=== PATIENT | female | born 1960 | race Caucasian/White ===

== ENCOUNTER 2022-05-11 13:15 | Inpatient (IN) | payer BC ==
[2022-05-11] VITALS (8 sets, daily range): BP systolic 100–121; BP diastolic 65–79
[~2022-05-11] VITALS: Ht 165.1 cm; Wt 61.4 kg
--- NOTE | 2022-05-11 13:15 | NUR ---
1310 BIBA ALS TO ER BED 10
--- NOTE | 2022-05-11 13:15 | NUR ---
RECEIVED FROM AMT; PLACED ON A Definition 6APE R860 VENTILATOR PLUGGED INTO RED OUTLET TOLERATING WELL WITHOUT ADVERSE REACTIONS NOTED TO A IRENE DCT #8 AIRWAY SECURED WITH A FELIPE TRACH TIE CUFF PRESSURE CHECKED NOTED AMBU BAG AT BEDSIDE; CHANGED Vt TO 400ml (7ml/kg PER ARDS PROTOCOL) INCREASD FIO2 TO 70% TO KEEP SATURATION GREATER THAN 92% DEEP TRACHEAL SUCTION FOR COPIOUS THIN YELLOW/GOLD SECRETIONS AIRWAY PATENT SPUTUM SAMPLE FORWARDED TO LAB
[2022-05-11 13:31] LABS: PROTHROMBIN TIME 10.9 secs (10.8-13.4)
[2022-05-11] MEDS ORDERED: cefTRIAXone 2,000 MG in DEXTROSE 5% 100 ML IV ONE (13:45)
[2022-05-11 13:56] LABS: BASOPHILS # (AUTO) 0.1 K/uL (0.00-0.22); BASOPHILS % (AUTO) 0.3 % (0.0-2.0); EOSINOPHILS # (AUTO) 0.1 K/uL (0-0.4); EOSINOPHILS % (AUTO) 0.4 % (0.0-4.0); HEMOGLOBIN 10.8 g/dL (12.0-16.0); LYMPHOCYTES # (AUTO) 0.8 K/uL (2.5-16.5); LYMPHOCYTES % (AUTO) 3.7 % (20.5-51.1); MEAN CORPUSCULAR HEMOGLOBIN 26 pg (27-31); MEAN CORPUSCULAR HGB CONC 33 g/dL (33-37); MEAN CORPUSCULAR VOLUME 79.9 fL (80-94); MONOCYTES # (AUTO) 1.6 K/uL (0.8-1.0); NEUTROPHILS # (AUTO) 19.8 K/uL (1.8-7.7); NEUTROPHILS % (AUTO) 88.6 % (42.2-75.2); PLATELET COUNT (AUTO) 287 K/uL (140-450); RED BLOOD CELL COUNT(AUTO) 4.13 MIL/uL (4.20-5.40); RED CELL DISTRIBUTION WIDTH 19.8 % (11.6-13.7)
[2022-05-11] MEDS ORDERED: cefTRIAXone 2,000 MG VIAL ONE (14:01)
[2022-05-11 14:10] LABS: WHITE BLOOD COUNT (AUTO) 22.3 K/uL (4.8-10.8)
--- NOTE | 2022-05-11 14:15 | NUR ---
RESTING WELL EQUAL CHEST RISE; SATURATION 100% ON FIO2 OF 70% PEEP 5cmH2O TITRATED FIO2 TO 35% CRUDE UNIT OPERATOR TO MONITOR
[2022-05-11 14:28] LABS: ALBUMIN 2.8 g/dL (3.4-5.0); ANION GAP 14.1 (8-16); CARBON DIOXIDE 31.2 mmol/L (21-32); CREATININE 0.5 mg/dL (0.6-1.3); POTASSIUM 3.3 mmol/L (3.5-5.1); TOTAL BILIRUBIN 0.2 mg/dL (0.0-1.0)
[2022-05-11] MEDS ORDERED: VANCOMYCIN PER PHARMACY MC PRN (15:00)
[2022-05-11] MEDS ORDERED: LORazepam 2 MG/ML VIAL IVP PRN (15:05)
[2022-05-11] MEDS ORDERED: MAG SULF 2000 MG/WATER PREMIX 50 ML IV PRN (15:05)
[2022-05-11] MEDS ORDERED: ZOLPIDEM 10 MG TAB PO PRN (15:05)
[2022-05-11] MEDS ORDERED: ONDANSETRON 4 MG/2 ML VIAL IVP PRN (15:05)
[2022-05-11] MEDS ORDERED: ACETAMINOPHEN 650 MG/20.3 ML UDC GT PRN (15:10)
[2022-05-11] MEDS ORDERED: DEXTROSE 50% 50 ML SYR IVP PRN (15:10)
[2022-05-11] MEDS ORDERED: DOCUSATE 100 MG/10 ML UDC PO PRN (15:10)
[2022-05-11] MEDS ORDERED: POTASSIUM CHLORIDE 20% 40 MEQ/15 ML UDC PO PRN (15:15)
--- NOTE | 2022-05-11 15:38 | NUR ---
ON OR ABOUT THIS TIME TRANSFERRED PATIENT ON VENTILATOR TO ICU-7; TOLERATED WELL WITHOUT COMPLICATIONS NOTED SATURATION 98% HR 96
--- NOTE | 2022-05-11 15:51 | NUR ---
RESTING COMFORTABLY EQUAL CHEST RISE AIRWAY PATENT NO SUCTIONING REQUIRED AT THIS TIME
--- NOTE | 2022-05-11 15:51 | NUR ---
STABLE GOOD CHEST RISE NO SUCTIONING REQUIRED AT THIS TIME SATURATION 97% ON FIO2 OF 50 % PEEP 5cmH2O TITRATED FIO2 TO 45% [place]TON/INJECTION MOLDING ENGINEER NOTIFIED
--- NOTE | 2022-05-11 16:00 | NUR ---
RECEIVED REPORT FROM ER NURSE. ADMITTED 62 Y/O FEMALE WITH ADMITTING DX OF SEPSIS. OPENS EYES TO NAME, TRACKS, MOUTHS WORDS. TRACH TO VENT ACPRVC FIO2 45 TV 400 RATE 12 PEEP 5. GT INTACT AND PATENT. SANDRA MIDLINE INTACT AND PATENT. PT HAS A SLING ON HER LEFT ARM D/T LEFT ELBOW FRACTURE PRIOR TO ADMISSION. SKIN INTACT, LOW LOUANN.
[2022-05-11] MEDS: VANCOMYCIN 1,000 MG in NACL 0.9% 250 ML IV SCH (16:54)
[2022-05-11] MEDS: BLOOD GLUCOSE MONITORING 1 DEV DEV FS SCH (17:24)
--- NOTE | 2022-05-11 20:00 | NUR ---
RECEIVED IN BED WITH EYES CLOSED , EASILY AROUSABLE . IN REPORT OUT GOING RN STATED THAT SERUM POTASSIUM WAS 3.3 AND REPLACED WITH 40MEQ OF POATASSIUM. WILL AWAIT RESULT OF POTASSIUM LEVELS IN AM LAB DRAWSI PATIENT STABLE AND WILL CONTINUE TO MONITOR .
[2022-05-11] MEDS: PIPERACILLIN/TAZOBACTAM 3.375 GM in DEXTROSE 5% 50 ML IV SCH (21:18)
[2022-05-11 22:28] LABS: APPEARANCE,URINE CLOUDY (CLEAR); BILIRUBIN,URINE NEGATIVE (NEGATIVE); BLOOD, URINE 1+ (NEGATIVE); COLOR,URINE YELLOW (YELLOW); LEUKOCYTE ESTERASE ,URINE 3+ (NEGATIVE); NITRITE, URINE NEGATIVE (NEGATIVE); UGLUCOSE NEGATIVE (NEGATIVE)
[2022-05-11 22:43] LABS: RBC,URINE 0-5 /HPF (0-5); WBC,URINE TOO MANY TO COUNT /HPF (0-5)
[2022-05-12] VITALS (20 sets, daily range): BP systolic 102–141; BP diastolic 61–89
[2022-05-12] MEDS: BLOOD GLUCOSE MONITORING 1 DEV DEV FS SCH ×5 (00:55→23:09)
[2022-05-12] MEDS: VANCOMYCIN 1,000 MG in NACL 0.9% 250 ML IV SCH ×2 (03:44→15:06)
[2022-05-12] MEDS: PIPERACILLIN/TAZOBACTAM 3.375 GM in DEXTROSE 5% 50 ML IV SCH ×3 (05:33→20:03)
[2022-05-12 05:50] LABS: BASOPHILS # (AUTO) 0.1 K/uL (0.00-0.22); BASOPHILS % (AUTO) 0.5 % (0.0-2.0); EOSINOPHILS # (AUTO) 0.1 K/uL (0-0.4); EOSINOPHILS % (AUTO) 0.3 % (0.0-4.0); HEMATOCRIT 30.8 % (36-48); HEMOGLOBIN 9.9 g/dL (12.0-16.0); LYMPHOCYTES % (AUTO) 5.5 % (20.5-51.1); MEAN CORPUSCULAR HEMOGLOBIN 26 pg (27-31); MEAN CORPUSCULAR HGB CONC 32 g/dL (33-37); MONOCYTES # (AUTO) 1.5 K/uL (0.8-1.0); MONOCYTES % (AUTO) 8.7 % (1.7-9.3); NEUTROPHILS # (AUTO) 14.8 K/uL (1.8-7.7); PLATELET COUNT (AUTO) 304 K/uL (140-450); RED BLOOD CELL COUNT(AUTO) 3.85 MIL/uL (4.20-5.40); RED CELL DISTRIBUTION WIDTH 19.9 % (11.6-13.7); WHITE BLOOD COUNT (AUTO) 17.4 K/uL (4.8-10.8)
[2022-05-12 06:46] LABS: ANION GAP 14.3 (8-16); CARBON DIOXIDE 29.8 mmol/L (21-32); CREATININE 0.4 mg/dL (0.6-1.3); POTASSIUM 4.1 mmol/L (3.5-5.1)
--- NOTE | 2022-05-12 07:15 | NUR ---
RECEIVED BEDSIDE REPORT FROM SHORT PIECE HANDLER MALAIKA REYES FOR CONTINUITY OF CARE. SLEEPING, NOT RESPOND TO NAME AND SHAKING. TRACH TO VENT, A/C PRVC FIO2 40%, VT 400, RATE 12, PEEP 5. SR ON MONITOR. MIDLINE TO SANDRA, INFUSING TKO NS @5 ML/HR. NPO. G TUBE CLAMPED.ESTRADA IN PLACE TO GRAVITY, URINE CLEAR AND YELLOW. LT ARM WITH SPLINT IN PLACE. SAFETY PRECAUTION IN PLACE, WILL CONTINUE TO MONITOR.
--- NOTE | 2022-05-12 07:55 | NUR ---
RECEIVED ON A [employer] Medical[employer]APE R860 VENTILATOR PLUGGED INTO RED OUTLET TOLERATING WELL WITHOUT ADVERSE REACTIONS NOTED TO A IRENE DCT #8 AIRWAY SECURED WITH A FELIPE TRACH TIE CUFF PRESSURE CHECKED NOTED AMBU BAG AT BEDSIDE RESTING COMFORTABLY EQUAL CHEST RISE DEEP TRACHEAL SUCTION FOR MODERATE SEMI THICK YELLOW SECRETIONS AIRWAY PATENT
[2022-05-12] MEDS: PANTOPRAZOLE 40 MG INJ VIAL IVP SCH (08:32)
--- NOTE | 2022-05-12 08:39 | NUR ---
SEEN AND EXAMINED BY DR MATHUR. ORDER RECEIVED. START TUBE FEEDING PER DIETITIAN RECOMMENDATION.
--- NOTE | 2022-05-12 08:51 | NUR ---
PATIENT HAS BEEN SCREENED AND CATEGORIZED HIGH NUTRITION RISK. PATIENT WILL BE SEEN WITHIN 1-2 DAYS OF ADMISSION. REVIEWED BY LINDA HOWARD RD
--- NOTE | 2022-05-12 09:59 | NUR ---
WOUND CARE NOTE: SKIN ASSESSMENT DONE WITH PRIMARY RN BRENTON. PT. SKIN INTACT. PT. ADMITTED WITH LEFT ELBOW FX SOFT CAST AND SLING IN PLACE, SKIN CHECKED UNDER DEVICES. PT. WITH LOW LOUANN SCALE AT HIGH RISK, CONTINUE TO FOLLOW PRESSURE INJURY PREVENTION INTERVENTIONS. -APPLY HYDRAGUARD TO PERINEUM BID AND SCALLOP BINDER -APPLY FOAM DRESSING TO SACROCOCCYX AND BUTTOCKS Q3 DAYS AND PRN IF SOILING -POSITIONING: TURN AND REPOSITION PATIENT Q 2H OR SOONER USE PILLOWS TO KEEP BONY PROMINENCES FROM DIRECT CONTACT WITH SURFACES USE REPOSITIONING WEDGES TO PROVIDE 30-DEGREE ANGLE FOR SIDE LYING POSITIONS OFFLOADING OR FOAM DRESSING TO ALL TUBING TO PREVENT MEDICAL DEVICES RELATED PRESSURE INJURY -RE-EVALUATING AND MANAGING INCONTINENCE MONITOR SKIN CONDITION DURING POSITION CHANGE DO NOT MASSAGE REDNESS, BONY PROMINENCES FREQUENT MARCE-CARE AND PROVIDE BARRIER CREAMS PRN IF SOILING MOISTURE CONTROL BY OFFER BED ALVARADO/URINAL /ABSORBENT PAD TO WICK AND HOLD MOISTURE KEEP SKIN DRY AND PROTECT FROM FRICTION -MANAGE FRICTION/SHEAR/MOBILITY KEEP HOB AT THE LOWEST LEVEL OF ELEVATION NO MORE THAN 30 DEGREE UNLESS OTHERWISE CONTRAINDICATED USE LIFT SHEET OR TRANSFER DEVICE TO MOVE PATIENT AND PREVENT LATERAL SHEER. PROTECT HEELS, ELBOWS BONY PROMINENCES WITH SKIN BERRIES OR FOAM DRESSING IF EXPOSED TO FRICTION OFFLOAD BILATERAL HEELS BY PLACING PILLOWS UNDER CALVES AT ALL TIMES, UNLESS OTHERWISE CONTRAINDICATED -PRESSURE REDISTRIBUTION SURFACE THERAPY JAY ISOFLEX MATTRESS -NUTRITION: PLEASE FOLLOW RD RECOMMENDATIONS AND OFFER NUTRITION SUPPLEMENTS IF ORDERED. PLEASE CONTACT WOUND CARE NURSE FOR ANY QUESTION AND CHANGE OF WOUND CONDITION.
--- NOTE | 2022-05-12 10:35 | NUR ---
SEEN AND EXAMINED BY DR RIOS. NO NEW ORDER.
--- NOTE | 2022-05-12 11:10 | NUR ---
RESTING WELL NO APPARENT DISTRESS NOTED GOOD CHEST RISE AIRWAY PATENT
--- NOTE | 2022-05-12 13:08 | NUR ---
NO APPARENT DISTRESS NOTED GOOD CHEST RISE DEEP TRACHEAL SUCTION FOR LARGE THICK PALE YELLOW SECRETIONS AIRWAY PATENT
[2022-05-12] MEDS ORDERED: FOAM DRESSING TP PRN (13:10)
--- NOTE | 2022-05-12 14:00 | NUR ---
SEEN AND EXAMINED BY DR LARIOS. UPDATED PT INFORMATION. NEW ORDER RECEIVED.
[2022-05-12] MEDS: FOAM DRESSING TP SCH (14:25)
[2022-05-12] MEDS: HYDRAGUARD CREAM TP SCH (14:26)
[2022-05-12] MEDS: ALBUTEROL 0.083% 2.5 MG/3 ML NEBU INH PRN (15:05)
[2022-05-12] MEDS: NACL 0.9% 1,000 ML IV SCH (15:05)
--- NOTE | 2022-05-12 15:05 | NUR ---
DC PLANNING ADMITTED A 62 YEAR OLD CHRONIC VENT PATIENT FOR DESATURATION AT SKILLED FACILITY.HX OF DM,HTN,SEIZURE DISORDER,GASTROSTOMY AND TRACHEOSTOMY PLACEMENT,ANXIETY, PROSTHETIC VALVE SURGERY,CHF.ON ZOSYN AND MAXIMILIANOO.CARLOS,I&D FOLLOWING.DC PLAN TENTATIVE BACK TO SKILLED FACILITY WHEN PATIENT RESPONDS TO [place]. Addendum: 05/16/22 at 1629 by LORA STONE CM DC PLANNING PATIENT TO GO BACK TO [facility].DISCHARGE ORDER GIVEN BY . Addendum: 05/17/22 at 1453 by LORA STONE CM DC PLANNING LATE ENTRY AUTH#[id number] FROM [facility] TAKEN.
--- NOTE | 2022-05-12 15:30 | NUR ---
FAMILY/SISTER AT BEDSIDE. UPDATED PT INFORMATION.
--- NOTE | 2022-05-12 15:31 | NUR ---
05/12/22 RD INITIAL ASSESSMENT COMPLETED PLEASE REFER TO NUTRITION ASSESSMENT UNDER CARE ACTIVITY FOR ESTIMATED NUTRITIONAL NEEDS. 1. MONITOR NPO STATUS 2. WHEN/IF MEDICALLY APPROPRIATE TO START TF, RECOMMEND GLUCERNA 1.2 AT GOAL RATE 55 ML/HR, FWF 100 ML Q4H TOLERATED - PROVIDES 1320 ML TOTAL VOLUME, 1584 KCAL, 79 GM PROTEIN AND 1662 ML FREE WATER DAILY MEETING 94% ESTIMATED KCAL NEEDS AND 100% ESTIMATED PROTEIN NEEDS; ADEQUATE - START TF AT 2O ML/HR INCREASE BY 2O ML Q4H UNTIL GOAL IS REACHED TOLERATED 3. MONITOR GI SYMPTOMS, GASTRIC RESIDUALS AND NUTRITION RELATED LAB VALUES 4. CONSULT RD PRN 5. RD TO FOLLOW-UP 2-3 DAYS, HIGH RISK REVIEWED BY LINDA HOWARD RD
--- NOTE | 2022-05-12 15:58 | NUR ---
NO EVIDENCE OF RESPIRATORY DISTRESS NOTED DEEP TRACHEAL SUCTION FOR LARGE SEMI THICK PALE YELLOW SECRETIONS AIRWAY PATENT
--- NOTE | 2022-05-12 16:05 | NUR ---
DC PLANNING ASSESSMENT COMPLETE PLEASE REFER TO ASSESSMENT FOR ADDITIONAL DETAILS JASWINDER REPORTS DC PLAN IS FOR PT TO RETURN TO [place] WHEN MEDICALLY STABLE Addendum: 05/12/22 at 1606 by Evelyn ACEVEDO Amended: Links added.
--- NOTE | 2022-05-12 17:16 | NUR ---
DR ALEXANDRA ROUNDING AT BEDSIDE. UPDATED PT INFORMATION. NO NEW ORDERED.
--- NOTE | 2022-05-12 19:20 | NUR ---
ENDORSED TO HEARING AID ASSISTANT RYLAN RN FOR CONTINUITY OF CARE. ALL QUESTION ANSWERED.
[2022-05-13] VITALS (23 sets, daily range): BP systolic 101–156; BP diastolic 52–91
[2022-05-13] MEDS: HYDRAGUARD CREAM TP SCH ×2 (01:00→12:33)
[2022-05-13] MEDS: VANCOMYCIN 1,000 MG in NACL 0.9% 250 ML IV SCH (03:16)
[2022-05-13 05:13] LABS: HEMOGLOBIN 10.7 g/dL (12.0-16.0); MEAN CORPUSCULAR HEMOGLOBIN 26 pg (27-31)
[2022-05-13 05:16] LABS: HEMATOCRIT 33.1 % (36-48); MEAN CORPUSCULAR HGB CONC 32 g/dL (33-37); MEAN CORPUSCULAR VOLUME 80.6 fL (80-94); PLATELET COUNT (AUTO) 211 K/uL (140-450); RED BLOOD CELL COUNT(AUTO) 4.11 MIL/uL (4.20-5.40); WHITE BLOOD COUNT (AUTO) 14.7 K/uL (4.8-10.8)
[2022-05-13 05:34] LABS: ANION GAP 13.9 (8-16); CARBON DIOXIDE 25.7 mmol/L (21-32); CREATININE 0.3 mg/dL (0.6-1.3); POTASSIUM 3.6 mmol/L (3.5-5.1)
[2022-05-13 05:50] LABS: LYMPHOCYTES % (MANUAL) 7 % (20-46); MONOCYTES % (MANUAL) 16 % (5-12)
[2022-05-13] MEDS: BLOOD GLUCOSE MONITORING 1 DEV DEV FS SCH ×4 (06:00→23:40)
--- NOTE | 2022-05-13 07:15 | NUR ---
RECEIVED BEDSIDE REPORT FROM AGRICULTURAL PLOW OPERATOR RYLAN RN FOR CONTINUITY OF CARE. LETHARGIC, NOT RESPOND TO NAME AND SHAKING. TRACH TO VENT, A/C PRVC FIO2 30%, VT 400, RATE 12, PEEP 5. ST ON MONITOR. MIDLINE TO SANDRA, INFUSING TKO NS @5 ML/HR, IVF NS @ 50ML/HR. G TUBE, RUNNING AT GLUCERNA 40 MLS/HR, FWF 100MLS Q4H. ESTRADA IN PLACE TO GRAVITY, URINE CLEAR AND LIGHT SAUD. LT ARM WITH SPLINT IN PLACE. SAFETY PRECAUTION IN PLACE, WILL CONTINUE TO MONITOR.
--- NOTE | 2022-05-13 07:27 | NUR ---
[id number] am pt was awakened but remains sleepy so K+IVPB 20 meq plus [id number] at 150 ml per hour. Inserted angio cath 20 left antecubital
[2022-05-13] MEDS: PANTOPRAZOLE 40 MG INJ VIAL IVP SCH (08:43)
[2022-05-13] MEDS: PIPERACILLIN/TAZOBACTAM 3.375 GM in DEXTROSE 5% 50 ML IV SCH ×3 (09:53→20:17)
[2022-05-13] MEDS: NACL 0.9% 1,000 ML IV SCH (10:30)
--- NOTE | 2022-05-13 10:40 | NUR ---
DR HELENE GRIGSBY . UPDATED PT INFORMATION. NO NEW ORDER.
--- NOTE | 2022-05-13 11:22 | NUR ---
SEEN AND EXAMINED BY DR CHAUDHARY. UPDATED PT INFORMATION. NO NEW ORDERS.
[2022-05-13] MEDS: INSULIN LISPRO SLIDING SCALE 100 UNITS/ML VIAL SUBQ PRN ×2 (11:43→17:44)
--- NOTE | 2022-05-13 13:00 | NUR ---
FAMILY/SISTER AT BEDSIDE. UPDATED PT INFORMATION.
--- NOTE | 2022-05-13 19:09 | NUR ---
ENDORSED TO METEOROLOGY TEACHER RYLAN RN FOR CONTINUITY OF CARE. ALL QUESTIONS ANSWERED.
[2022-05-14] VITALS (17 sets, daily range): BP systolic 102–141; BP diastolic 52–80
[2022-05-14] MEDS: HYDRAGUARD CREAM TP SCH ×2 (00:48→13:25)
--- NOTE | 2022-05-14 02:57 | NUR ---
complete bed bath and linen changed done
[2022-05-14] MEDS: VANCOMYCIN 1.25GM PREMIX 250 ML IV SCH (03:04)
[2022-05-14] MEDS: PIPERACILLIN/TAZOBACTAM 3.375 GM in DEXTROSE 5% 50 ML IV SCH ×3 (04:10→20:38)
[2022-05-14] MEDS: BLOOD GLUCOSE MONITORING 1 DEV DEV FS SCH ×3 (05:13→17:37)
[2022-05-14 05:46] LABS: BASOPHILS # (AUTO) 0.1 K/uL (0.00-0.22); BASOPHILS % (AUTO) 0.9 % (0.0-2.0); EOSINOPHILS # (AUTO) 0.3 K/uL (0-0.4); EOSINOPHILS % (AUTO) 2.5 % (0.0-4.0); HEMATOCRIT 27.8 % (36-48); HEMOGLOBIN 9.2 g/dL (12.0-16.0); LYMPHOCYTES # (AUTO) 0.9 K/uL (2.5-16.5); MEAN CORPUSCULAR HEMOGLOBIN 27 pg (27-31); MEAN CORPUSCULAR HGB CONC 33 g/dL (33-37); MEAN CORPUSCULAR VOLUME 80.4 fL (80-94); MONOCYTES # (AUTO) 1.2 K/uL (0.8-1.0); NEUTROPHILS # (AUTO) 7.7 K/uL (1.8-7.7); PLATELET COUNT (AUTO) 220 K/uL (140-450); RED BLOOD CELL COUNT(AUTO) 3.46 MIL/uL (4.20-5.40); RED CELL DISTRIBUTION WIDTH 19.4 % (11.6-13.7); WHITE BLOOD COUNT (AUTO) 10.2 K/uL (4.8-10.8)
[2022-05-14 06:11] LABS: CARBON DIOXIDE 27.8 mmol/L (21-32); CREATININE 0.3 mg/dL (0.6-1.3)
[2022-05-14 06:12] LABS: POTASSIUM 2.8 mmol/L (3.5-5.1)
--- NOTE | 2022-05-14 06:19 | NUR ---
At 0610 am lab called with 2.8 and 40 meq liquid given per GT
[2022-05-14] MEDS: POTASSIUM CHLORIDE 20% 40 MEQ/15 ML UDC PO PRN ×5 (06:20→18:42)
[2022-05-14 06:48] LABS: LYMPHOCYTES % (AUTO) 9.1 % (20.5-51.1); MONOCYTES % (AUTO) 11.7 % (1.7-9.3); NEUTROPHILS % (AUTO) 75.8 % (42.2-75.2)
--- NOTE | 2022-05-14 07:15 | NUR ---
RECEIVED BEDSIDE REPORT FROM ASSOCIATE JUVENILE COURT JUDGE RYLAN RN FOR CONTINUITY OF CARE. AWAKE. TRACH TO VENT, A/C PRVC FIO2 25%, VT 400, RATE 12, PEEP 5. SR ON MONITOR. MIDLINE TO SANDRA, INFUSING TKO NS @5 ML/HR. G TUBE, RUNNING AT GLUCERNA 55 MLS/HR, FWF 100MLS Q4H. ESTRADA IN PLACE TO GRAVITY, URINE CLEAR AND LIGHT SAUD. LT ARM WITH SPLINT IN PLACE. SAFETY PRECAUTION IN PLACE, WILL CONTINUE TO MONITOR.
[2022-05-14] MEDS: PANTOPRAZOLE 40 MG INJ VIAL IVP SCH (08:12)
[2022-05-14] MEDS: ENOXAPARIN 40 MG/0.4 ML SYR SUBQ SCH (08:13)
[2022-05-14] MEDS: INSULIN LISPRO SLIDING SCALE 100 UNITS/ML VIAL SUBQ PRN ×2 (11:48→17:38)
--- NOTE | 2022-05-14 14:34 | NUR ---
05/14/22 RD FOLLOW UP COMPLETED.PLEASE REFER TO NUTRITION ASSESSMENT UNDER CARE ACTIVITY FOR ESTIMATED NUTRITIONAL NEEDS. 1. CONTINUE WITH GLUCERNA 1.2 AT 55 ML/HR, FWF 100 ML Q4H TOLERATED - PROVIDES 1320 ML TOTAL VOLUME, 1584 KCAL, 79 GM PROTEIN AND 1662 ML FREE WATER DAILY MEETING 94% ESTIMATED KCAL NEEDS AND 100% ESTIMATED PROTEIN NEEDS; ADEQUATE 2. MONITOR GI SYMPTOMS 3.RD TO FOLLOW-UP IN 2-3 DAYS PATIENT IS HIGH RISK. ALBINA KAPLAN RD
[2022-05-14] MEDS: MORPHINE SULFATE 2 MG/ML SYR IVP PRN (16:16)
--- NOTE | 2022-05-14 17:17 | NUR ---
STABLE GOOD CHEST RISE DEEP TRACHEAL SUCTION FOR MODERATE SEMI THICK PALE YELLOW SECRETIONS AIRWAY PATENT; SISTER AT BEDSIDE
[2022-05-14] MEDS ORDERED: KCL 20 MEQ IN 100 mL PREMIX 200 ML IV ONE (18:10)
--- NOTE | 2022-05-14 18:23 | NUR ---
SEEN AND EXAMINED BY DR RICCI. SISTER AT BEDSIDE AND ANSWERED ALL THE QUESTION FOR PATIENT.
--- NOTE | 2022-05-14 18:57 | NUR ---
SEEN AND EXAMINED BY DR ROJAS. UPDATED PT INFORMATION.
--- NOTE | 2022-05-14 19:23 | NUR ---
ENDORSED TO KEY FILER STAR/MIRZA RN FOR CONTINUITY OF CARE. ALL QUESTIONS ANSWERED.
--- NOTE | 2022-05-14 19:25 | NUR ---
RECEIVED BEDSIDE REPORT FROM SHORTY REYES. VITAL SIGNS: HR 71, RR 18, SPO2 99%, BP 111/58. PT RESTING IN BED EYES CLOSED. TRACH TO VENT MODE: A/C PRVC FIO2 25% VT 400. RR 12 PEEP 5. G TUBE RUNNING GLUCERNA 1.2 AT 55ML/HR. ESTRADA CATHETER IN PLACE DRAINING CLEAR YELLOW URINE. MIDLINE SANDRA ACCESS RUNNING NS AT 5 ML/HR. PT ON CONTACT PRECAUTIONS. FLACC 0.
[2022-05-14] MEDS: carvediloL 3.125 MG TAB PO SCH (20:39)
[2022-05-15] VITALS (12 sets, daily range): BP systolic 116–136; BP diastolic 71–77
[2022-05-15] MEDS: HYDRAGUARD CREAM TP SCH ×2 (01:00→13:01)
[2022-05-15] MEDS: MORPHINE SULFATE 2 MG/ML SYR IVP PRN (03:11)
[2022-05-15] MEDS: VANCOMYCIN 1.25GM PREMIX 250 ML IV SCH (03:38)
[2022-05-15 06:11] LABS: BASOPHILS # (AUTO) 0.1 K/uL (0.00-0.22); BASOPHILS % (AUTO) 0.9 % (0.0-2.0); EOSINOPHILS # (AUTO) 0.2 K/uL (0-0.4); EOSINOPHILS % (AUTO) 2.1 % (0.0-4.0); HEMATOCRIT 29.1 % (36-48); HEMOGLOBIN 9.3 g/dL (12.0-16.0); LYMPHOCYTES # (AUTO) 1.2 K/uL (2.5-16.5); LYMPHOCYTES % (AUTO) 13.7 % (20.5-51.1); MEAN CORPUSCULAR HEMOGLOBIN 26 pg (27-31); MEAN CORPUSCULAR HGB CONC 32 g/dL (33-37); MEAN CORPUSCULAR VOLUME 81.7 fL (80-94); MONOCYTES % (AUTO) 11.3 % (1.7-9.3); NEUTROPHILS # (AUTO) 6.5 K/uL (1.8-7.7); PLATELET COUNT (AUTO) 261 K/uL (140-450); RED BLOOD CELL COUNT(AUTO) 3.56 MIL/uL (4.20-5.40); RED CELL DISTRIBUTION WIDTH 19.5 % (11.6-13.7); WHITE BLOOD COUNT (AUTO) 9.1 K/uL (4.8-10.8)
[2022-05-15] MEDS: BLOOD GLUCOSE MONITORING 1 DEV DEV FS SCH ×4 (06:14→18:05)
[2022-05-15 06:18] LABS: CARBON DIOXIDE 25.8 mmol/L (21-32); CREATININE 0.4 mg/dL (0.6-1.3); POTASSIUM 4.8 mmol/L (3.5-5.1)
[2022-05-15] MEDS: PIPERACILLIN/TAZOBACTAM 3.375 GM in DEXTROSE 5% 50 ML IV SCH ×2 (06:24→12:45)
--- NOTE | 2022-05-15 07:18 | NUR ---
BEDSIDE REPORT GIVEN TO KOSTA REYES FOR CONTINUITY OF CARE.
--- NOTE | 2022-05-15 07:35 | NUR ---
RECEIVED ON A Track the [employer] R860 VENTILATOR PLUGGED INTO RED OUTLET TOLERATING WELL WITHOUT ADVERSE REACTIONS NOTED TO A IRENE DCT #6 AIRWAY SECURED WITH A FELIPE TRACH TIE CUFF PRESSURE CHECKED NOTED AMBU BAG AT BEDSIDE STABLE NO DISTRESS NOTED GOOD CHEST RISE DEEP TRACHEAL SUCTION FOR LARGE SEMI THICK PALE YELLOW SECRETIONS AIRWAY PATENT
--- NOTE | 2022-05-15 07:36 | NUR ---
GOT REPORT FROM THE NIGHT NURSE, PT IS IN VENT TO TRACK NON VERBAL V.S WITHIN NORMAL LIMIT.[id number]
[2022-05-15] MEDS: ALBUTEROL 0.083% 2.5 MG/3 ML NEBU INH PRN ×2 (07:41→13:36)
--- NOTE | 2022-05-15 08:45 | NUR ---
RESTING COMFORTABLY NO EVIDENCE FOR PULMONARY DISTRESS NOTED EQUAL CHEST RISE DEEP TRACHEAL SUCTION FOR SMALL SEMI THICK PALE YELLOW SECRETIONS AIRWAY PATIENT
[2022-05-15] MEDS ORDERED: ECOTRIN 81 MG TABEC PO SCH (09:00)
[2022-05-15] MEDS: AMIODARONE 200 MG TAB PO SCH (09:05)
[2022-05-15] MEDS: PANTOPRAZOLE 40 MG INJ VIAL IVP SCH (09:05)
[2022-05-15] MEDS: lisinopriL 5 MG TAB PO SCH (09:05)
[2022-05-15] MEDS: carvediloL 3.125 MG TAB PO SCH ×2 (09:05→20:14)
[2022-05-15] MEDS: FOAM DRESSING TP SCH (09:06)
[2022-05-15] MEDS: ENOXAPARIN 40 MG/0.4 ML SYR SUBQ SCH (09:06)
[2022-05-15] MEDS ORDERED: FUROSEMIDE 20 MG/2 ML VIAL IVP SCH (10:15)
--- NOTE | 2022-05-15 11:30 | NUR ---
NO APPARENT PULMONARY DISTRESS NOTED EQUAL CHEST RISE DEEP TRACHEAL SUCTION FOR LARGE SEMI THICK PALE YELLOW SECRETIONS AIRWAY PATENT
--- NOTE | 2022-05-15 14:25 | NUR ---
pt resting repositioned and feeding is maintained as ordered, fio2 24% now sister, at bedside. [email or web address]
[2022-05-15] MEDS ORDERED: COMMUNICATION ORDER MC PRN (15:30)
--- NOTE | 2022-05-15 15:40 | NUR ---
RESTING WELL NO SOB NOTED GOOD CHEST RISE DEEP TRACHEAL SUCTION FOR MODERATE SEMI THICK PALE YELLOW SECRETIONS AIRWAY PATENT
[2022-05-15] MEDS: CIPROFLOXACIN 250 MG TAB PO SCH ×3 (15:58→20:15)
--- NOTE | 2022-05-15 19:31 | NUR ---
GAVE REPORT TO THE NIGHT NURSE, PT KETTY.[email or web address]
--- NOTE | 2022-05-15 19:32 | NUR ---
ASSUMED CARE OF PT.INITIAL ASSESSMENT COMPLETED.SR NOTED ON MONITOR.DOES NOT FOLLOW COMMANDS.TRACH TO VENT FIO2 24% TV400 RATE 12 PEEP5.W/SANDRA MIDLINE INTACT INFUSING NS AT TKO.W/G TUBE NO RESIDUALS NOTED.ON CONTINUOUS TUBE FEEDING ORDERED.W/ESTRADA CATHETER TO BSD DRAINING ADEQUATE AMT OF YELLOW URINE.W/SLING TO LT ARM ALSO NOTED.SKIN INTACT.FLACC 0.FALL PRECAUTION IN PLACE.
--- NOTE | 2022-05-15 21:00 | NUR ---
PT SUCTIONED.LARGE AMT OF CLEAR SECRETIONS NOTED.VAP ORAL CARE DONE.
--- NOTE | 2022-05-15 22:38 | NUR ---
BM NOTED; MODERATE AMT OF BROWNISH WATERY STOOL, PT CLEANED.REPOSITIONED.
[2022-05-16] VITALS (9 sets, daily range): BP systolic 101–149; BP diastolic 52–85
--- NOTE | 2022-05-16 | NUR ---
ORAL CARE USING VAP KIT RENDERED.ORAL SECRETIONS SUCTIONED.LARGE AMT OF CLEAR SECRETIONS.AFEBRILE.REPOSITIONED.FLACC 0
[2022-05-16] MEDS: BLOOD GLUCOSE MONITORING 1 DEV DEV FS SCH ×3 (00:38→11:59)
[2022-05-16] MEDS: HYDRAGUARD CREAM TP SCH ×2 (00:42→12:01)
--- NOTE | 2022-05-16 03:01 | NUR ---
PTS CONDITION REMAINS UNCHANGED,SECRETIONS SUCTIONED NEEDED. FLACC 0.REPOSITIONED.
--- NOTE | 2022-05-16 05:57 | NUR ---
MORNING CARE DONE.BS CHECKED 101, NO INSULIN COVERAGE REQUIRED
--- NOTE | 2022-05-16 06:00 | NUR ---
BM NOTED, SMALL AMT OF BROWNISH WATERY STOOL, PT CLEANED.REPOSITIONED.NO RESP DISTRESS NOTED THIS SHIFT.FLACC 0
[2022-05-16 06:01] LABS: BASOPHILS # (AUTO) 0.1 K/uL (0.00-0.22); BASOPHILS % (AUTO) 0.6 % (0.0-2.0); EOSINOPHILS # (AUTO) 0.2 K/uL (0-0.4); EOSINOPHILS % (AUTO) 2.5 % (0.0-4.0); HEMATOCRIT 28.2 % (36-48); HEMOGLOBIN 9.2 g/dL (12.0-16.0); LYMPHOCYTES # (AUTO) 1.4 K/uL (2.5-16.5); LYMPHOCYTES % (AUTO) 17.2 % (20.5-51.1); MEAN CORPUSCULAR HEMOGLOBIN 26 pg (27-31); MEAN CORPUSCULAR HGB CONC 33 g/dL (33-37); MEAN CORPUSCULAR VOLUME 81.1 fL (80-94); MONOCYTES # (AUTO) 1.1 K/uL (0.8-1.0); MONOCYTES % (AUTO) 13.8 % (1.7-9.3); NEUTROPHILS # (AUTO) 5.4 K/uL (1.8-7.7); NEUTROPHILS % (AUTO) 65.9 % (42.2-75.2); PLATELET COUNT (AUTO) 278 K/uL (140-450); RED BLOOD CELL COUNT(AUTO) 3.48 MIL/uL (4.20-5.40); RED CELL DISTRIBUTION WIDTH 19.5 % (11.6-13.7); WHITE BLOOD COUNT (AUTO) 8.3 K/uL (4.8-10.8)
[2022-05-16 07:11] LABS: ANION GAP 14.4 (8-16); CARBON DIOXIDE 24.7 mmol/L (21-32); CREATININE 0.4 mg/dL (0.6-1.3); POTASSIUM 4.1 mmol/L (3.5-5.1)
--- NOTE | 2022-05-16 07:40 | NUR ---
Received pt awake, nonverbal, unable to follow commands. Trach to vent settings AC PRVC TV 400 rate 12 PEEP 5 FiO2@24%. Sinus rhythm on monitor. G-tube intact and infusing Glucerna 1.2@55 ml/hr with FWF 100ml Q4h. Ta catheter intact and draining to gravity. PICC line single lumen on right upper arm intact and patent infusing NS@TKO. Contact precautions for TURBINE MECHANIC sputum. Safety precautions in place. Addendum: 05/16/22 at [address] RN *Midline single lumen on right upper arm intact and patent infusing NS@TKO.
[2022-05-16] MEDS: PANTOPRAZOLE 40 MG INJ VIAL IVP SCH (08:25)
[2022-05-16] MEDS: AMIODARONE 200 MG TAB PO SCH (08:25)
[2022-05-16] MEDS: ENOXAPARIN 40 MG/0.4 ML SYR SUBQ SCH (08:25)
[2022-05-16] MEDS: carvediloL 3.125 MG TAB PO SCH (08:26)
[2022-05-16] MEDS: lisinopriL 5 MG TAB PO SCH (08:26)
[2022-05-16] MEDS: CIPROFLOXACIN 250 MG TAB PO SCH (08:27)
[2022-05-16] MEDS ORDERED: FUROSEMIDE 20 MG/2 ML VIAL IVP SCH (09:00)
[2022-05-16] MEDS ORDERED: ASPIRIN 81 MG TAB.CHEW GT SCH (09:00)
--- NOTE | 2022-05-16 10:05 | NUR ---
Seen and examined by Dr. Fuentes. No new orders.
[2022-05-16] MEDS: INSULIN LISPRO SLIDING SCALE 100 UNITS/ML VIAL SUBQ PRN (11:58)
--- NOTE | 2022-05-16 12:42 | NUR ---
2nd attempt to call welfare case worker regarding discharge with no answer and left voice message.
--- NOTE | 2022-05-16 12:55 | NUR ---
Seen and examined by Dr. Gregory. Pt for discharge tomorrow.
[2022-05-16] MEDS ORDERED: CARV3.122 PO (14:16)
[2022-05-16] MEDS ORDERED: ASPI81CT95 GT (14:16)
[2022-05-16] MEDS ORDERED: LISI5TAB24 PO (14:16)
[2022-05-16] MEDS ORDERED: AMIO200T10 PO (14:16)
[2022-05-16] MEDS ORDERED: CIPR250T3 PO (14:16)
--- NOTE | 2022-05-16 15:50 | NUR ---
Received phone call from case management manager Dona. Pt for discharge today and per Dona, confirmed with Dr. Gregory. carpenter labor supervisor time at 1630. Sister Alena at bedside and made aware of transfer. All questions answered.
--- NOTE | 2022-05-16 16:02 | NUR ---
Called [facility] and spoke to AMY Haas and gave report. All questions answered.
--- NOTE | 2022-05-16 16:47 | NUR ---
[facility] arrived and picked up pt. for transfer to [facility]. VSS.
== END 2022-05-16 16:47 | DRG 720 ==
LOC: MED 13:15 → MIC 15:03
PROVIDERS: ADMIT Family Medicine; ATTEND Family Medicine
PROC: 5A1955Z Respiratory Ventilation, Greater than 96 Consecutive Hours (ICD-10-PCS; principal; 2022-05-11)
DX: A41.9 Sepsis, unspecified organism (principal); J96.21 Acute and chronic respiratory failure with hypoxia; R65.21 Severe sepsis with septic shock; J15.1 Pneumonia due to Pseudomonas; E87.20 Acidosis, unspecified; I11.0 Hypertensive heart disease with heart failure; N17.9 Acute kidney failure, unspecified; I50.22 Chronic systolic (congestive) heart failure; Z99.11 Dependence on respirator [ventilator] status; Z93.0 Tracheostomy status; Z20.822 Contact with and (suspected) exposure to COVID-19; E11.8 Type 2 diabetes mellitus with unspecified complications; Y95 Nosocomial condition; N39.0 Urinary tract infection, site not specified; R13.10 Dysphagia, unspecified; R41.82 Altered mental status, unspecified; G40.909 Epilepsy, unspecified, not intractable, without status epilepticus; S52.022A Displaced fracture of olecranon process without intraarticular extension of left ulna, initial encounter for closed fracture; F41.9 Anxiety disorder, unspecified; E11.9 Type 2 diabetes mellitus without complications; Z93.1 Gastrostomy status; Z95.2 Presence of prosthetic heart valve; Z79.4 Long term (current) use of insulin; X58.XXXA Exposure to other specified factors, initial encounter; Y93.89 Activity, other specified; Y92.89 Other specified places as the place of occurrence of the external cause; Y99.8 Other external cause status
CPT/HCPCS: 36415; 71045; 73070; 76700; 80048; 80053; 80202; 81001; 82550; 82553; 82948; 83605; 83735; 83880; 84484; 85025; 85610; 85730; 87040; 87070; 87081; 87086; 87205; 89220; 93005; 94003; 94640; 96374; 99291; C9113; J0696; J1650; J1815; J1940; J2270; J2543; J3370; J3372; J7030; J7060; J7613; Q0092

== ENCOUNTER 2022-12-13 16:51 | Emergency (ER) | payer BC ==
[~2022-12-13] VITALS: Ht 162.6 cm; Wt 75.7 kg
[~2022-12-13 16:51] MED LIST: AMIO200T10 PO; ASPI81CT95 GT; CARV3.122 PO; CIPR250T3 PO; LISI5TAB24 PO
[2022-12-13 16:53] VITALS: BP 111/57; PULSE 100; RESP 17; TEMP 97.8; O2SAT 97
[2022-12-13 18:48] VITALS: O2SAT 98
[2022-12-13 18:49] VITALS: BP 126/74; PULSE 100; RESP 18; TEMP 98
== END 2022-12-13 18:48 ==
LOC: MED 16:51
DX: K94.23 Gastrostomy malfunction (principal); I11.0 Hypertensive heart disease with heart failure; I50.9 Heart failure, unspecified; E11.9 Type 2 diabetes mellitus without complications; Z86.73 Personal history of transient ischemic attack (TIA), and cerebral infarction without residual deficits; Z86.69 Personal history of other diseases of the nervous system and sense organs; Z98.890 Other specified postprocedural states; Z79.899 Other long term (current) drug therapy; Z79.2 Long term (current) use of antibiotics; Z79.82 Long term (current) use of aspirin
CPT/HCPCS: 43762; 74240; 82948; 99284; Q9967